=== PATIENT | female | born 1950 | race Hispanic/Latino ===

== ENCOUNTER 2020-08-31 10:11 | Outpatient (CLI) | payer MEDICARE ==
--- NOTE | 2020-08-31 12:28 | Mammography Report ---
DIGITAL SCREENING MAMMOGRAM WITH CAD, 08/31/2020 CLINICAL INFORMATION / INDICATION: Routine screening TECHNIQUE: Digital bilateral 2D mammography was obtained in the craniocaudal and mediolateral obliqu e projections. This examination was interpreted with the benefit of Computer-Aided Detection analysis . COMPARISON: 08/31/2019 and prior FINDINGS: Breast Density: The breasts are heterogeneously dense, which may obscure small masses. No dominant mass, suspicious calcifications, or architectural distortion in the left breast. An ovoid density in the anterior to mid depth of the upper right breast on MLO view only appears more prominent than prior studies. Probably this represents superimposed breast tissue but developing les ion is not excluded. IMPRESSION: Possible developing density on the right Follow up recommendation: Right spot compression views and ultrasound if needed BI-RADS Category 0: Incomplete. Needs additional imaging evaluation and/or prior mammograms for monica walton. A "normal" or negative report should not discourage follow up or biopsy of a clinically significant f inding. A written summary of these findings will be mailed to the patient. The patient will be entered into a mammography reporting system which will generate a reminder letter for the patient's next appointmen t at the appropriate interval. The [employer] recommends yearly mammograms starting at age 40 and continuing as l regan as a woman is in good health. Breast MRI is recommended for women with an approximate 20-25% or greater lifetime risk of breast cancer, including women with a strong family history of breast or ova lyndon cancer or who have been treated for Hodgkin's disease. Signer Name: Eb Castillo MD Signed: 08/31/2020 12:23 PM Workstation Name: [email or web address]
== END 2020-08-31 10:12 | disposition home or self-care (01) ==
LOC: SPVWC 10:11
PROVIDERS: ATTEND Surgery
DX: Z12.31 Encounter for screening mammogram for malignant neoplasm of breast (principal); N64.89 Other specified disorders of breast
CPT/HCPCS: 77067

== ENCOUNTER 2020-09-28 09:28 | Outpatient (CLI) | payer MEDICARE ==
--- NOTE | 2020-09-28 11:37 | Mammography Report ---
RIGHT DIGITAL DIAGNOSTIC MAMMOGRAM WITH CAD -- 09/28/2020 RIGHT LIMITED BREAST ULTRASOUND INDICATION: Patient presents as a callback from screening mammogram for further evaluation of an asym metric density in the right breast. TECHNIQUE: Digital right mammographic imaging was performed. Spot compression views were obtained. L imited ultrasound was performed. This examination was interpreted with the benefit of Computer-Aided Detection (CAD) analysis. COMPARISON: Prior mammogram 08/31/2020 FINDINGS: Breast Density: The breasts are heterogeneously dense, which may obscure small masses. MAMMOGRAPHIC FINDINGS: The previously described asymmetric density in the superior right breast is le ss conspicuous on additional views and most likely reflects overlapping dense fibroglandular tissue. Targeted ultrasound was performed for confirmation. ULTRASOUND FINDINGS: Targeted ultrasound evaluation was performed of the area of interest. Targeted ultrasound of the superior right breast reveals normal fibroglandular tissue. No suspicious cystic o r solid lesion identified. IMPRESSION: 1. The previously described asymmetric density is most compatible with overlapping dense fibroglandul ar tissue. No suspicious mammographic or sonographic abnormality identified. Follow up recommendation: Routine yearly BI-RADS Category 1: Negative. A "normal" or negative report should not discourage follow up or biopsy of a clinically significant f inding. A written summary of these findings will be mailed to the patient. The patient will be entered into a mammography reporting system which will generate a reminder letter for the patient's next appointmen t at the appropriate interval. According to the [employer], yearly mammograms are recommended starting at age 40 and continuing as long as a woman is in good health. Breast MRI is recommended for women with an patric roximately 20-25% or greater lifetime risk of breast cancer, including women with a strong family his tory of breast or ovarian cancer and women who have been treated for Hodgkin's disease. Signer Name: Barb Flood MD Signed: 09/28/2020 11:33 AM Workstation Name: [employer]
== END 2020-09-28 09:29 | disposition home or self-care (01) ==
LOC: SPVWC 09:28
PROVIDERS: ATTEND Surgery
DX: R92.8 Other abnormal and inconclusive findings on diagnostic imaging of breast (principal)